=== PATIENT | male | born 1935 | race Caucasian/White ===

== ENCOUNTER 2019-01-12 12:11 | Emergency (ER) | payer MEDICARE, OTHER ==
[~2019-01-12] VITALS: Ht 167.6 cm; Wt 77.7 kg
[~2019-01-12 12:11] MED LIST: ASPI-611 PO; DILT120C94 PO; LISI40TA4 PO
[2019-01-12 12:24] VITALS: BP 161/92
--- NOTE | 2019-01-12 12:39 | NUR ---
DR. SAINI AT BEDSIDE ASSESSING PT.
== END 2019-01-12 12:54 | disposition home or self-care (01) ==
LOC: ER 12:12
DX: S05.11XA Contusion of eyeball and orbital tissues, right eye, initial encounter (principal); I10 Essential (primary) hypertension; M19.90 Unspecified osteoarthritis, unspecified site; Z79.82 Long term (current) use of aspirin; Z79.899 Other long term (current) drug therapy; W01.0XXA Fall on same level from slipping, tripping and stumbling without subsequent striking against object, initial encounter; Y93.01 Activity, walking, marching and hiking; Y92.89 Other specified places as the place of occurrence of the external cause; Y99.8 Other external cause status
CPT/HCPCS: 99283